=== PATIENT | female | born 1975 | race American Indian/Alaskan Native ===

== ENCOUNTER 2019-01-11 12:11 | Observation (INO) | payer BC ==
[2019-01-07 10:35] LABS: Hematocrit 36.2 % (30.3-42.9); Hemoglobin 11.3 gm/dl (10.1-14.3); Mean Corpuscular HGB Conc 31 % (30-34); Mean Corpuscular Volume 74 fl (79-97); Red Blood Count 4.89 M/mm3 (3.65-5.03)
[2019-01-07 10:36] LABS: Platelet Count 306 K/mm3 (140-440); Red Cell Distribution Width 37.1 % (13.2-15.2)
--- NOTE | 2019-01-07 10:57 | Anesthesia Consultation ---
Anesthesia Consult and Med Hx Date of service: 01/11/19 - Airway Anesthetic Teeth Evaluation: Good ROM Head & Neck: Adequate Mental/Hyoid Distance: Adequate Mallampati Class: Class II Intubation Access Assessment: Probably Good - Pulmonary Exam CTA: Yes - Cardiac Exam Cardiac Exam: RRR - Pre-Operative Health Status ASA Pre-Surgery Classification: ASA2 Proposed Anesthetic Plan: General Nerve Block: TAP block - Pulmonary Hx Smoking: No Hx Asthma: No - Cardiovascular System Hx Hypertension: No Hx Cardia Arrhythmia: No Hx Pacemaker: No - Central Nervous System Hx Neuromuscular Disorder: No Hx Psychiatric Problems: No - Endocrine Hx Renal Disease: Yes (FSGS (in remission)) Hx Liver Disease: No Hx Insulin Dependent Diabetes: No Hx Non-Insulin Dependent Diabetes: No - Hematic Hx Anemia: Yes - Other Systems Hx Cancer: No - Additional Comments Anesthesia Medical History Comments: No GAC, No FHAC
[2019-01-07 11:53] LABS: Anisocytosis 3+; Basophils % (Manual) 0 % (0.0-1.8); Hypochromasia 1+; Poikilocytosis 1+; Total Cells Counted 100
[2019-01-07 11:54] LABS: Ovalocytes Few; Platelet Estimate Consistent w Auto; Tear Drop Cells Few
[2019-01-11] MEDS ORDERED: LACTATED RINGERS 1,000 ML IV SCH (13:28)
[2019-01-11] MEDS ORDERED: SUBLIMAZE IV NR (14:07)
[2019-01-11] MEDS ORDERED: SUBLIMAZE IV PRN (14:07)
[2019-01-11] MEDS ORDERED: DILAUDID IV PRN (14:07)
[2019-01-11] MEDS ORDERED: NEOSPORIN GU IR ONE ×2 (14:07→15:20)
--- NOTE | 2019-01-11 14:07 | Anesthesia Day of Surgery ---
Anesthesia Day of Surgery - Day of Surgery Patient Examined: Yes Patient H&P Reviewed: Yes Patient is NPO: Yes
[2019-01-11] MEDS ORDERED: ZEMURON IV ONE (14:11)
[2019-01-11] MEDS ORDERED: TORADOL ONE (14:11)
[2019-01-11] MEDS ORDERED: ROBINUL ONE ×2 (14:11→16:33)
[2019-01-11] MEDS ORDERED: BLOXIVERZ ONE (14:11)
[2019-01-11] MEDS ORDERED: DECADRON ONE ×2 (14:11→14:23)
[2019-01-11] MEDS ORDERED: ZOFRAN ONE (14:11)
[2019-01-11] MEDS ORDERED: XYLOCAINE MPF 2% ONE (14:11)
[2019-01-11] MEDS ORDERED: DIPRIVAN 10 MG/ML IV ONE (14:12)
[2019-01-11] MEDS ORDERED: DILAUDID ONE ×2 (14:12→17:21)
--- NOTE | 2019-01-11 14:27 | History and Physical Report ---
History of Present Illness Date of examination: 01/11/19 Chief complaint: Symptomatic uterine fibroids History of present illness: Patient is a 43-year-old black female LMP 01/02/19 presents for surgical evaluation and treatment of symptomatic uterine fibroids. She complains of prolonged heavy vaginal bleeding along with pelvic pain. Pelvic ultrasound shows the uterus to measure 13 x 7 x 8cm with 2 uterine fibroids. She desires a Robotic-Assisted Total Hysterectomy with ovarian conservation. Past History Past Medical History: hypertension, renal disease Past Surgical History: cholecystectomy, section SALES STRATEGY MANAGER History: fibroids Family/Genetic History: none Social history: no significant social history, Medications and Allergies Allergies Allergy/AdvReac Type Severity Reaction Status Date / Time shellfish derived Allergy Whelps, Verified 01/06/19 08:32 itching Home Medications Medication Instructions Recorded Confirmed Last Taken Type No Known Home Medications [No 01/06/19 01/06/19 Unknown History Reported Home Medications] Active Meds: Active Medications Acetaminophen (Tylenol) 650 mg PO PREOP NR Stop: 01/11/19 23:01 Celecoxib (Celebrex) 200 mg PO PREOP NR Stop: 01/12/19 14:59 Fentanyl (Sublimaze) 50 mcg IV Q5MIN PRN PRN Reason: Pain , Severe (7-10) Stop: 01/12/19 14:06 Fentanyl (Sublimaze) 100 mcg IV ONCE NR Stop: 01/11/19 23:00 Gabapentin (Neurontin) 300 mg PO PREOP NR Stop: 01/12/19 14:59 Hydromorphone HCl (Dilaudid) 0.5 mg IV Q10MIN PRN PRN Reason: Pain , Severe (7-10) Stop: 01/12/19 23:00 Lactated Ringer's (Lactated Ringers) 1,000 mls @ 75 mls/hr IV DIRECT EMERALD Last Admin: 01/11/19 13:40 Dose: 75 mls/hr Documented by: Midazolam HCl (Versed) 2 mg IV PREOP NR Stop: 01/11/19 23:59 Review of Systems All systems: negative - Vital Signs Vital signs: Vital Signs Temp Pulse Resp BP Pulse Ox 98.7 F 74 20 146/77 99 01/07/19 10:00 01/07/19 10:00 01/07/19 10:00 01/07/19 10:00 01/07/19 10:00 Temp Pulse Resp BP Pulse Ox 98.7 F 74 20 146/77 99 01/07/19 10:00 01/07/19 10:00 01/07/19 10:00 01/07/19 10:00 01/07/19 10:00 - Physical Exam Breasts: Positive: deferred Cardiovascular: Regular rate Lungs: Positive: Clear to auscultation Abdomen: Positive: normal appearance Genitourinary (Female): Positive: normal external genitalia Vagina: Positive: normal moisture Uterus: Positive: enlarged Extremities: Positive: normal Results Result Diagrams: 01/12/19 07:29 All other labs normal. Ultrasound: report reviewed Assessment and Plan - Patient Problems (1) Uterine fibroid Onset Date: 01/11/19 Current Visit: Yes Status: Acute Qualifiers: Uterine leiomyoma location: intramural, submucous, and subserous Qualified Code(s): D25.1 - Intramural leiomyoma of uterus; D25.0 - Submucous leiomyoma of uterus; D25.2 - Subserosal leiomyoma of uterus Plan to address problem: A: Symptomatic uterine fibroids Menorrhagia P: Will admit for a Robotic Assisted Total Hysterectomy with Bilateral salpingectomy. (2) Menorrhagia with regular cycle Onset Date: 01/11/19 Current Visit: Yes Status: Acute
[2019-01-11] MEDS ORDERED: NEURONTIN PO NR (15:00)
[2019-01-11] MEDS ORDERED: TYLENOL PO NR (15:00)
[2019-01-11] MEDS ORDERED: VERSED IV NR (15:00)
[2019-01-11] MEDS ORDERED: ANCEF/STERILE WATER 2 GM/20 ML 2 GM/20 ML SYRINGE IV NR (15:00)
[2019-01-11] MEDS ORDERED: NACL 0.9% IR ONE ×2 (15:20)
[2019-01-11] MEDS ORDERED: ZOFRAN IV PRN (16:42)
[2019-01-11] MEDS ORDERED: NARCAN 0.4 MG/1 ML IV PRN (16:42)
[2019-01-11] MEDS ORDERED: SODIUM CHLORIDE FLUSH SYRINGE 10 ML IV PRN (16:42)
[2019-01-11] MEDS ORDERED: PHENERGAN PR PRN (16:42)
[2019-01-11] MEDS ORDERED: MILK OF MAGNESIA PO PRN (16:42)
[2019-01-11] MEDS ORDERED: NORCO 5/325 PO PRN (16:42)
[2019-01-11] MEDS ORDERED: TYLENOL PO PRN (16:42)
--- NOTE | 2019-01-11 16:59 | Operative Report ---
Operative Report Operative Report: Date of procedure: 01/11/2019 Pre-operative diagnosis: 1. Symptomatic uterine fibroids 2. Menorrhagia Post-operative diagnosis: Same with right ovarian cyst and pelvic adhesions Procedure name(s): 1. Robotic-assisted total hysterectomy 2. Left salpingectomy 3. Right salpingo-oophorectomy 4. Lysis of pelvic adhesions Surgeon: Collin Aaron MD Induction Machine Operator: Jeannine Hoyt CSA Anesthesia: TRACY Block followed by general endotracheal intubation EBL: Less than 100 mL's Findings: A 12-14 week size multiple myomatous uterus with a large right ovarian cyst - dermoid tumor. Normal tubes bilaterally and normal left ovary. Pelvic adhesions. Omental adhesions to the anterior abdominal wall. Omental adhesions to the right ovarian cystic mass. Procedure: After the patient's first correctly identified she was prepped and draped in the usual sterile fashion and placed in the dorsolithotomy position. The bladder was first catheterized using Kwok catheter and the speculum was placed in the vagina and the anterior lip of the cervix was grasped using a single-tooth tenaculum, and the medium Vesicare cup was placed. The tenaculum and speculum was then removed from the vagina and attention was then turned to the abdomen. The skin knife was used to make a small incision approximately 5 cm above the umbilicus through which a 12 mm trocar was placed under direct visualization. After adequate amount of abdominal insufflation visualization of the pelvic organs found the uterus to be enlarged at the tubes were found to be normal bilaterally. The right ovary was enlarged and cystic, and the left ovary was normal. A right and left paramedian incision was made through which the 8 mm trochars were placed under direct visualization and a 5 mm trocar was placed in the right lower quadrant. The patient was then placed in steep Trendelenburg positioning and the robot was docked on the patient's left side. After all the robotic ports were connected and adequate functioning of the robotic arms were tested the surgeon then proceeded to the console to begin the hysterectomy. First the left round ligament was grasped, cauterized and cut, the left utero- ovarian ligaments were grasped, cauterized and cut, and the left fallopian tube also grasped, cauterized and cut along the mesosalpinx, thus freeing the left ovary from the left uterine sidewall. The same procedure was performed on the right. The right infundibulopelvic ligament was grasped, cauterized and cut, the right ovarian cyst was incised and found to spill thick, serous fluid with hair within the ovarian cyst. The right ovary was then excised, thus freeing the right ovary from the right pelvic sidewall. The bladder flap was taken down anteriorly and the uterine vessels were grasped, cauterized and cut bilaterally. The cardinal ligaments were sequentially grasped, cauterized and cut down to the level of the uterosacral ligaments. At this time the posterior colpotomy was performed over the Vcare cup, and the cervix was circumscribed beginning posteriorly and meeting anteriorly until the cervix was freed. The cervix and uterus was then removed through the vagina and sent to pathology. The vaginal cuff was then closed using 2-0 Vloc suture in a running fashion. Irrigation was then performed and after good hemostasis was achieved the procedure was considered complete. The Tisseel sealant was then sprayed across the vaginal cuff site, and after excellent hemostasis was assured Interceed was placed across the vaginal cuff site. All instruments were then removed from the abdominal cavity. And each incision was closed using 0 Vicryl suture in a [id number] configuration on the fascia followed by 4-0 Monocryl suture in a sub-cuticular fashion on the skin. Each incision was also infiltrated using 0.5% Marcaine solution. The vaginal pack was removed. The patient tolerated the procedure well and was transported to the recovery room in stable condition.
[2019-01-11] MEDS: TORADOL IV SCH (20:52)
[2019-01-11] MEDS: COLACE PO SCH (21:00)
[2019-01-11] MEDS: D5LR 1,000 ML IV SCH (21:40)
[2019-01-11] MEDS: PERCOCET 5/325 PO PRN (21:47)
[2019-01-11] MEDS: ANCEF/NS 1 GM/50 ML 1 GM/50 ML BAG IV SCH (23:13)
[2019-01-12] MEDS: TORADOL IV SCH (03:54)
[2019-01-12] MEDS: D5LR 1,000 ML IV SCH (05:19)
[2019-01-12] MEDS: ANCEF/NS 1 GM/50 ML 1 GM/50 ML BAG IV SCH (07:28)
[2019-01-12 07:48] LABS: Hematocrit 35.5 % (30.3-42.9)
--- NOTE | 2019-01-12 09:13 | Progress Note ---
Assessment and Plan - Patient Problems (1) Uterine fibroid Onset Date: 01/11/19 Current Visit: Yes Status: Resolved Qualifiers: Uterine leiomyoma location: intramural, submucous, and subserous Qualified Code(s): D25.1 - Intramural leiomyoma of uterus; D25.0 - Submucous leiomyoma of uterus; D25.2 - Subserosal leiomyoma of uterus (2) Menorrhagia with regular cycle Onset Date: 01/11/19 Current Visit: Yes Status: Resolved (3) S/P robot-assisted surgical procedure Onset Date: 01/12/19 Current Visit: Yes Status: Resolved Plan to address problem: A: S/P RATH with Right SalpingoOophorectomy - POD #1 Doing well Asymptomatic anemia - stable P: May go home today. Subjective - Subjective Date of service: 01/12/19 Principal diagnosis: s/p RATH - POD #1 Interval history: Patient is feeling well s/p a Robotic-Assisted Total Hysterectomy with Right Salpingoophorectomy. She is tolerating a reg diet without nausea or vomiting, ambulating and voiding without difficulty. Patient reports: appetite normal, voiding normally, pain well controlled, flatus, ambulating normally, no dizzy ambulation, no nauseated Objective - Vital Signs Latest vital signs: Vital Signs Temp Pulse Resp BP BP Pulse Ox 01/12/19 05:42 98.8 F 65 20 131/69 98 01/12/19 01:48 98.4 F 68 20 135/67 100 01/11/19 20:57 97.0 F L 67 20 151/81 100 01/11/19 18:30 97.4 F L 71 18 133/74 98 01/11/19 18:00 75 12 121/57 100 01/11/19 17:45 97.1 F L 64 12 119/70 100 01/11/19 17:30 69 12 111/60 100 01/11/19 17:15 67 12 115/58 100 01/11/19 17:05 64 12 109/53 100 01/11/19 17:00 60 12 98/50 100 01/11/19 16:57 97.8 F 61 12 100/50 100 01/11/19 14:35 98 H 15 153/83 100 01/11/19 14:30 101 H 20 150/81 100 01/11/19 14:25 93 H 17 149/83 100 01/11/19 14:19 93 H 22 153/79 100 01/11/19 14:15 16 01/11/19 13:30 99.1 F 69 14 139/90 100 01/11/19 13:20 99.1 F 69 14 139/90 100 Intake and Output 01/11/19 01/12/19 01/12/19 22:59 06:59 14:59 Intake Total 550 1366.25 120 Output Total 100 700 Balance 450 666.25 120 Intake: IV 550 1006.25 ANCEF/NS 1 GM/50 ML 1 gm 50 In 50 ml @ 100 mls/hr IV Q8H EMERALD Rx#:[id number] D5lr 1,000 ml @ 125 mls/ 956.25 hr IV DIRECT EMERALD Rx#: [id number] Oral 360 120 Output: Urine 100 700 Indwelling Catheter 700 Other: Total, Intake Amount 120 120 Total, Output Amount 300 Voiding Method Indwelling Catheter Toilet # Voids 0 - Exam Abdomen: Present: normal appearance, soft Extremities: Present: normal Incision: Present: normal, dry, intact - Labs Labs: Laboratory Tests 01/07/19 01/07/19 01/11/19 10:10 10:10 13:50 WBC 6.0 RBC 4.89 Hgb 11.3 Hct 36.2 MCV 74 L MCH 23 L MCHC 31 RDW 37.1 H Plt Count 306 Add Manual Diff Complete Total Counted 100 Seg Neuts % (Manual) 75.0 H Band Neutrophils % 0 Lymphocytes % (Manual) 22.0 Reactive Lymphs % (Man) 0 Monocytes % (Manual) 2.0 Eosinophils % (Manual) 1.0 Basophils % (Manual) 0 Metamyelocytes % 0 Myelocytes % 0 Promyelocytes % 0 Blast Cells % 0 Nucleated RBC % Not Reportable Seg Neutrophils # Man 4.5 Band Neutrophils # 0.0 Lymphocytes # (Manual) 1.3 Abs React Lymphs (Man) 0.0 Monocytes # (Manual) 0.1 Eosinophils # (Manual) 0.1 Basophils # (Manual) 0.0 Metamyelocytes # 0.0 Myelocytes # 0.0 Promyelocytes # 0.0 Blast Cells # 0.0 WBC Morphology Not Reportable Hypersegmented Neuts Not Reportable Hyposegmented Neuts Not Reportable Hypogranular Neuts Not Reportable Smudge Cells Not Reportable Toxic Granulation Not Reportable Toxic Vacuolation Not Reportable Dohle Bodies Not Reportable Pelger-Huet Anomaly Not Reportable Dima Rods Not Reportable Platelet Estimate Consistent w auto Clumped Platelets Not Reportable Plt Clumps, EDTA Not Reportable Large Platelets Not Reportable Giant Platelets Not Reportable Platelet Satelliting Not Reportable Plt Morphology Comment Not Reportable RBC Morphology Not Reportable Dimorphic RBCs Not Reportable Polychromasia Not Reportable Hypochromasia 1+ Poikilocytosis 1+ Anisocytosis 3+ Microcytosis Not Reportable Macrocytosis Not Reportable Spherocytes Not Reportable Pappenheimer Bodies Not Reportable Sickle Cells Not Reportable Target Cells Not Reportable Tear Drop Cells Few Ovalocytes Few Helmet Cells Not Reportable Richards-[place] Bodies Not Reportable Whitney Rings Not Reportable Shan Cells Not Reportable Bite Cells Not Reportable Crenated Cell Not Reportable Elliptocytes Few Acanthocytes (Spur) Not Reportable Rouleaux Not Reportable Hemoglobin C Crystals Not Reportable Schistocytes Not Reportable Malaria parasites Not Reportable Rancho Bodies Not Reportable Hem Pathologist Commnt No HCG, Qual Negative Blood Type O POSITIVE Antibody Screen Negative 01/12/19 07:29 WBC RBC Hgb 11.0 Hct 35.5 MCV MCH MCHC RDW Plt Count Add Manual Diff Total Counted Seg Neuts % (Manual) Band Neutrophils % Lymphocytes % (Manual) Reactive Lymphs % (Man) Monocytes % (Manual) Eosinophils % (Manual) Basophils % (Manual) Metamyelocytes % Myelocytes % Promyelocytes % Blast Cells % Nucleated RBC % Seg Neutrophils # Man Band Neutrophils # Lymphocytes # (Manual) Abs React Lymphs (Man) Monocytes # (Manual) Eosinophils # (Manual) Basophils # (Manual) Metamyelocytes # Myelocytes # Promyelocytes # Blast Cells # WBC Morphology Hypersegmented Neuts Hyposegmented Neuts Hypogranular Neuts Smudge Cells Toxic Granulation Toxic Vacuolation Dohle Bodies Pelger-Huet Anomaly Dima Rods Platelet Estimate Clumped Platelets Plt Clumps, EDTA Large Platelets Giant Platelets Platelet Satelliting Plt Morphology Comment RBC Morphology Dimorphic RBCs Polychromasia Hypochromasia Poikilocytosis Anisocytosis Microcytosis Macrocytosis Spherocytes Pappenheimer Bodies Sickle Cells Target Cells Tear Drop Cells Ovalocytes Helmet Cells Richards-[place] Bodies Whitney Rings Osborne Cells Bite Cells Crenated Cell Elliptocytes Acanthocytes (Spur) Rouleaux Hemoglobin C Crystals Schistocytes Malaria parasites Rancho Bodies Hem Pathologist Commnt HCG, Qual Blood Type Antibody Screen
--- NOTE | 2019-01-12 10:16 | Discharge Summary ---
Providers - Providers Date of Admission: 01/11/19 16:42 Date of discharge: 01/12/19 Attending physician: DARRICK ROMERO Primary care physician: PHILOMENA CURTIS Hospitalization Reason for admission: other (Symptomatic uterine fibroids; Menorrhagia) Procedure: other (Robotic Assisted Total Hysterectomy with Right SalpingoOophorectomy) Episiotomy: none Laceration: none Incision: normal, dry, intact Other procedures: none complications: none Discharge diagnosis: other (s/p RATH with RSO) Hospital course: Patient is a 43-year-old black female LMP 01/02/19 who presented for surgical evaluation and treatment of symptomatic uterine fibroids. She complained of prolonged heavy vaginal bleeding along with pelvic pain. Pelvic ultrasound showed the uterus to measure 13 x 7 x 8cm with 2 uterine fibroids. She underwent an uncomplicated Robotic-Assisted Total Hysterectomy with Right SalpingoOophorectomy and left salpingectomy and tolerated the procedure well. By POD #1 she was tolerating a reg diet without nausea or vomiting, ambulating and voiding without difficulty. She was therefore discharged to home on POD #1 in stable condition. Condition at discharge: Good Disposition: DC-01 TO HOME OR SELFCARE - Discharge Diagnoses (1) Uterine fibroid Status: Resolved Qualifiers: Uterine leiomyoma location: intramural, submucous, and subserous Qualified Code(s): D25.1 - Intramural leiomyoma of uterus; D25.0 - Submucous leiomyoma of uterus; D25.2 - Subserosal leiomyoma of uterus (2) Menorrhagia with regular cycle Status: Resolved Plan - Discharge Medications Prescriptions: Ibuprofen [Motrin] 800 mg PO Q8HR PRN #30 tablet PRN Reason: Pain, Mild (1-3) oxyCODONE /ACETAMINOPHEN [Percocet 5/325 mg] 1 tab PO Q6H PRN #30 tablet PRN Reason: Pain, Moderate (4-6) - Provider Discharge Summary Activity: routine, no sex for 6 weeks, no heavy lifting 4 weeks, no strenuous exercise Diet: routine Instructions: routine Additional instructions: [] Smoking cessation referral if applicable(refer to patient education folder for contact #) [] Refer to [facility]'s [facility] Booklet Call your doctor immediately for: * Fever > 100.5 * Heavy vaginal bleeding ( >1 pad per hour) * Severe persistent headache * Shortness of breath * Reddened, hot, painful area to leg or breast * Drainage or odor from incision. * Keep incision clean and dry at all times and follow doctor's instructions regarding bathing/showering - Follow up plan Follow up: PHILOMENA CURTIS MD [Primary Care Provider] - 7 Days DARRICK ROMERO MD [Staff Physician] - 14 Days
[2019-01-12] MEDS: COLACE PO SCH (10:34)
[2019-01-12] MEDS: PERCOCET 5/325 PO PRN (10:35)
[2019-01-12 13:49] VITALS: BP 131/69
== END 2019-01-12 12:30 | disposition home or self-care (01) ==
LOC: OR 12:11 → OB 16:42
PROVIDERS: ADMIT Obstetrics & Gynecology; ATTEND Obstetrics & Gynecology
DX: D25.9 Leiomyoma of uterus, unspecified (principal); N92.0 Excessive and frequent menstruation with regular cycle; I10 Essential (primary) hypertension; Z90.49 Acquired absence of other specified parts of digestive tract; Z79.899 Other long term (current) drug therapy; Z98.890 Other specified postprocedural states; Z90.710 Acquired absence of both cervix and uterus
CPT/HCPCS: 36415; 58660; 64450; 84703; 85007; 85014; 85018; 85025; 86850; 86900; 86901; 88307; 96365; 96366; 96375; 96376; A4217; C1765; C9250; G0378; J0690; J1100; J1170; J1885; J2250; J2405; J2704; J2710; J3010; J7120; J7121; S2900